=== PATIENT | female | born 1960 | race Hispanic/Latino ===

== ENCOUNTER 2017-02-18 19:11 | Emergency (ER) | payer OTHER ==
[~2017-02-18] VITALS: Ht 157.5 cm; Wt 58.1 kg
[2017-02-18 19:16] VITALS: BP 132/88
[2017-02-18] MEDS ORDERED: ERYTHROMYCIN1 GM OPH (20:38)
--- NOTE | 2017-02-18 20:38 | ED EYE COMPLAINT ---
History of Present Illness General Chief Complaint: Eye Problems Stated Complaint: EYE PAIN Source: patient, family Exam Limitations: no limitations Vital Signs & Intake/Output Vital Signs & Intake/Output Vital Signs Date Time Temp Pulse Resp B/P B/P Pulse O2 O2 Flow FiO2 Mean Ox Delivery Rate 02/18 2045 Room Air 02/19 1916 97.6 76 20 132/88 97 Allergies Uncoded Allergies: IV CONSTRAST (ITCHING 04/26/16) Reconcile Medications Erythromycin Base (Erythromycin) 5 MG/GRAM (0.5 %) OINT...G. 1 KARAN OPH 4XDP Corneal Abrasion apply 1 cm ribbon into the lower conjunctival sac Triage Note: FB LEFT EYE Triage Nurses Notes Reviewed? yes HPI: 56 yo previously healthy F presenting with left eye pain s/p injury. Patient was gardening this afternoon, branch from plan accidentally snapped back and struck patient in left eye, acute onset pain with foreign body sensation since that time, photophobia, no visual field deficits or changes in visual acuity. Patient does not wear contact lenses. (NANCY HINDS,SHAWANDA) Past History Travel History Traveled to [place] past 21 day No Medical History Any Pertinent Medical History? none Surgical History Surgical History: none Psychosocial History Who do you live with Spouse What is your primary language Luxembourgish Family History Hx Contributory? No (NANCY HINDS,SHAWANDA) Review of Systems Review of Systems Constitutional: Reports: no symptoms. Eyes: Reports: pain. Ear: Reports: no symptoms. Nose: Reports: no symptoms. Mouth: Reports: no symptoms. Throat: Reports: no symptoms. Respiratory: Reports: no symptoms. Cardiovascular: Reports: no symptoms. GI: Reports: no symptoms. Genitourinary: Reports: no symptoms. Musculoskeletal: Reports: no symptoms. Skin: Reports: no symptoms. Neurological/Psychological: Reports: no symptoms. Hematologic/Endocrine: Reports: no symptoms. Immunologic/Allergic: Reports: no symptoms. All Other Systems: Reviewed and Negative (SHAWANDA CRUZ MD) Physical Exam General Appearance: well developed/nourished, no apparent distress, alert, awake , anxious, comfortable, cachetic, sedated, intubated, lethargic, mild distress, moderate distress, severe distress, intoxicated, obese, thin General Inspection: conjunctival injection, discomfort secondary to light General Inspection: normal inspection Physical Exam Head: atraumatic, normal appearance Nose: normal inspection Mouth/Throat: pharynx normal (NANCY HINDS,SHAWANDA) Progress Differential Diagnosis: corneal abrasion, corneal foreign body, conjunctivitis, detached retina, glaucoma, globe rupture, retinal art./v. occlusion Plan of Care: Physician MDM: 56 yo previously healthy F presenting with left eye pain s/p injury. VSS, exam as above. Left eye anesthetized with topical tetracaine, stained with fluorescein dye, examined with slit-lamp, large corneal abrasion visualized @ 5:00 overlying iris, eye examined with magnifying glass/UV light without visualization of foreign bodies, upper and lower lids everted without visualization of foreign bodies underneath the lids. Vision 20/25 in both eyes, no visual field deficits. Discharged with erythromycin eye ointment, plan and follow-up with PMD in the next 2-3 days for further evaluation. (NANCY HINDS,SHAWANDA) Departure Departure Disposition: HOME OR SELF CARE Condition: Stable Clinical Impression Primary Impression: Corneal abrasion Referrals: ABRAHAN HINDS,CURLY Benitez (PCP/Family) Additional Instructions: Use erythromycin eye ointment 4 times daily for the next 5 days. Take Tylenol or ibuprofen as needed for pain. Follow-up with her primary care physician as needed. Return to the emergency department for any new, worsening, or concerning symptoms. Departure Forms: Customer Survey General Discharge Information Prescriptions: Current Visit Scripts Erythromycin Base (Erythromycin) 1 KARAN OPH 4XDP #3.5 GM apply 1 cm ribbon into the lower conjunctival sac (NANCY HINDS,SHAWANDA) Resident Co-Sign Statement Statement: ED Attending supervision documentation- [] I saw and evaluated the patient. I have also reviewed all the pertinent lab results and diagnostic results. I agree with the findings and the plan of care as documented in the Resident's documentation. [X] I have reviewed the ED Record and agree with the Resident's documentation. [] Additions or exceptions (if any) to the Resident's note and plan are summarized below: [] (JOANN HINDS,LEIGH ANN Izaguirre)
== END 2017-02-18 20:49 ==
LOC: ERH 19:11
DX: S05.02XA Injury of conjunctiva and corneal abrasion without foreign body, left eye, initial encounter (principal); W22.8XXA Striking against or struck by other objects, initial encounter; Y93.H2 Activity, gardening and landscaping